=== PATIENT | male | born 1980 | race Caucasian/White ===

== ENCOUNTER 2017-04-07 22:32 | Observation (INO) | payer BC ==
[~2017-04-07] VITALS: Ht 182.9 cm; Wt 105.0 kg
[2017-04-07] MEDS ORDERED: DIPH25TA26 PO (22:46)
[2017-04-07] MEDS ORDERED: AMLO10TA2 PO (22:46)
[2017-04-07] MEDS ORDERED: METO-99 PO (22:46)
[2017-04-07] MEDS ORDERED: CETI10TA18 PO (22:46)
[2017-04-07] MEDS ORDERED: ALLO100T30 PO (22:46)
[2017-04-07] MEDS ORDERED: OMNIPAQUE 350 MG/ML, 100ML BOTTLE ONE (23:03)
[2017-04-07 23:41] LABS: IS PT STATUS REG ER OR PRE ER? YES
[2017-04-08] MEDS ORDERED: ONDANSETRON 2MG/ML, 2ML IVPush PRN (01:00)
[2017-04-08] MEDS ORDERED: morphine SULFATE 10 MG/ML, 1ML IVPush PRN (01:00)
[2017-04-08] MEDS ORDERED: NITROGLYCERIN 0.4 MG BOTTLE (25 TABS) SL PRN (01:00)
[2017-04-08] MEDS ORDERED: DOCUSATE 100 MG CAPSULE PO PRN (01:00)
[2017-04-08] MEDS ORDERED: ENALAPRILAT 1.25 MG/ML, 2ML IVPush PRN (01:00)
[2017-04-08] MEDS ORDERED: ENOXAPARIN 40 MG/0.4 ML SQ SCH (01:00)
[2017-04-08] MEDS ORDERED: TEMAZEPAM 15 MG CAPSULE PO PRN (01:00)
[2017-04-08 01:54] VITALS: BP 141/80
[2017-04-08] MEDS: NS + 20MEQ KCL 1,000 ML IV SCH ×2 (04:07→14:48)
[2017-04-08 06:09] LABS: IS PT STATUS REG ER OR PRE ER? NO
[2017-04-08 06:58] VITALS: BP 161/97
[2017-04-08] MEDS: ALLOPURINOL 100 MG TABLET PO SCH ×2 (09:00→09:17)
[2017-04-08] MEDS ORDERED: AMLODIPINE 5 MG TABLET PO SCH (09:00)
[2017-04-08] MEDS ORDERED: CETIRIZINE 10 MG TABLET PO SCH (09:00)
[2017-04-08] MEDS: DIPHENHYDRAMINE 25 MG CAPSULE PO SCH ×2 (09:00→09:17)
[2017-04-08] MEDS: METOPROLOL TARTRATE 100 MG TABLET PO SCH ×2 (09:00→09:17)
[2017-04-08 11:38] LABS: IS PT STATUS REG ER OR PRE ER? NO
[2017-04-08 14:35] VITALS: BP 133/97
== END 2017-04-08 17:51 | disposition home or self-care (01) ==
LOC: ED 23:59 → EDIP 04-08 00:04 → INTOOBSV 04-08 00:04 → 5SO 04-08 01:50
DX: R07.89 Other chest pain (principal); R55 Syncope and collapse; E87.6 Hypokalemia; I10 Essential (primary) hypertension; F45.8 Other somatoform disorders; F10.20 Alcohol dependence, uncomplicated; M10.9 Gout, unspecified; Z83.3 Family history of diabetes mellitus; Z98.890 Other specified postprocedural states
CPT/HCPCS: 36415; 71275; 83735; 84100; 84439; 84443; 84484; 93005; 93017; 93306; 93880; 93970; 96365; 96366; 99285; G0378; J3480; Q9967; Q0163